=== PATIENT | female | born 1955 | race Caucasian/White ===

== ENCOUNTER → 2016-02-22 | Day surgery (SDC) | payer BC ==
[2016-02-05 08:34] VITALS: BMI 28.0
[~2016-02-22] VITALS: Ht 165.1 cm; Wt 77.3 kg
[~2016-02-22] MED LIST: ATEN-173 PO; BUPRTAB51 PO; ERGO500037 PO; FLNIN NAE; FLUO20CA37 PO; HYDR25SU20 PR; LIDOCAINE HCL 2% 2 ML VIAL (20MG/ML) ONE; MULT-506 PO; OMEG10007 PO; PANT40TA PO; POLY335019 PO; PRMVC TOP; PROPOFOL IV EMULSION 10 MG/ML 20 ML VIAL IV ONE; SIMV20TA5 PO
[2016-02-22 14:15] VITALS: Ht 165.1 cm; Wt 77.3 kg
--- NOTE | 2016-02-22 14:15 | Endo History and Physical ---
History & Physical Date of Service: Feb 22, 2016. Chief Complaint: Screening Referring Physician: DR. Cross History of Present Illness For colonoscopy Past Medical History Reflux, High Cholesterol, Hypertension, Kidney Disease Past Surgical History Hx Cardiac Surgery: No Hx Internal Defibrillator: No Hx Pacemaker: No Hx Abdominal Surgery: Yes (SHIMON, RECTOCELE REPAIR) Hx of Implantable Prosthesis: No Hx Post-Op Nausea and Vomiting: Yes Hx Cancer Surgery: No Hx Thoracic Surgery: No Hx Orthopedic: Yes (RT THUMB TENDON REPAIR) Hx Urinary Tract Surgery: No Family History None Social History Smoking Status: Former Smoker Hx Substance Use: No Hx Alcohol Use: No Allergies Coded Allergies: Sulfa Drugs (Verified Allergy, Mild, RASH, 02/05/16) Current Medications Reported Home Medications Medications Dose Route/Sig Max Daily Dose Days Date Category Dose Instructions Premarin (Estrogens, Conjugated) 14 Appln/30 Gm Cr 1 Appl TOP UD PRN 02/05/16 Reported Protonix (Pantoprazole Sodium) 40 Mg Tab 40 Mg PO DAILY PRN 02/05/16 Reported Vitamin D 10951 Unit (Ergocalciferol) 50,000 Unit Cap 50,000 Unit PO MONTHLY 02/05/16 Reported Anusol-Hc (Hydrocortisone Acetate (Rectal) 25 Mg Sup 25 Mg CA BID PRN 02/05/16 Reported Miralax (Polyethylene Glycol 3350) 1 Pow Pow 17 Gm PO QPM 02/05/16 Reported Multivitamin (Multivitamins) Tab 1 Tab PO QAM 07/14/14 Reported [place]-3 (Fish Oil) 1 Ea Cap 1,000 Mg PO QAM 05/12/13 Reported Tenormin (Atenolol) 25 Mg Tab 25 Mg PO QAM 05/12/13 Reported Zocor (Simvastatin) 20 Mg Tab 20 Mg PO QPM 05/12/13 Reported Wellbutrin-Xl (Bupropion HCl) 300 Mg Tabcr 300 Mg PO QAM 04/12/09 Reported Prozac (Fluoxetine Hcl) 20 Mg Cap 20 Mg PO QAM 04/12/09 Reported TO TAKE W/ 40MG TABLET TO HAVE FULL DOSE OF 60MG Flonase Nasal [place] * (Fluticasone Propionate) Inha 2 Sprays ROCHELLE DAILY PRN 01/03/09 Reported Vital Signs Weight (Kilograms): 77.27 Height (Feet): 5 Height (Inches): 5 Physical Exam General Appearance: + obese Respiratory/Chest: Respiratory effort: no dyspnea Cardiovascular: Heart Auscultation: RRR Abdomen: Inspection & Palpation: soft Assessment and Plan For screening colonoscopy
--- NOTE | 2016-02-22 14:47 | Discharge Instructions ---
Endoscopy Patient Instructions Date / Procedure(s) Performed Feb 22, 2016. Colonoscopy Allergy Information Coded Allergies: Sulfa Drugs (Verified Allergy, Mild, RASH, 02/05/16) Discharge Date / Findings Feb 22, 2016. Hemorrhoids Medication Instructions Restart Stopped Medication(s): resume meds Reported Home Medications Medications Dose Route/Sig Max Daily Dose Days Date Category Dose Instructions Premarin (Estrogens, Conjugated) 14 Appln/30 Gm Cr 1 Appl TOP UD PRN 02/05/16 Reported Protonix (Pantoprazole Sodium) 40 Mg Tab 40 Mg PO DAILY PRN 02/05/16 Reported Vitamin D 14551 Unit (Ergocalciferol) 50,000 Unit Cap 50,000 Unit PO MONTHLY 02/05/16 Reported Anusol-Hc (Hydrocortisone Acetate (Rectal) 25 Mg Sup 25 Mg NE BID PRN 02/05/16 Reported Miralax (Polyethylene Glycol 3350) 1 Pow Pow 17 Gm PO QPM 02/05/16 Reported Multivitamin (Multivitamins) Tab 1 Tab PO QAM 07/14/14 Reported [place]-3 (Fish Oil) 1 Ea Cap 1,000 Mg PO QAM 05/12/13 Reported Tenormin (Atenolol) 25 Mg Tab 25 Mg PO QAM 05/12/13 Reported Zocor (Simvastatin) 20 Mg Tab 20 Mg PO QPM 05/12/13 Reported Wellbutrin-Xl (Bupropion HCl) 300 Mg Tabcr 300 Mg PO QAM 04/12/09 Reported Prozac (Fluoxetine Hcl) 20 Mg Cap 20 Mg PO QAM 04/12/09 Reported TO TAKE W/ 40MG TABLET TO HAVE FULL DOSE OF 60MG Flonase Nasal [place] * (Fluticasone Propionate) Inha 2 Sprays ROCHELLE DAILY PRN 01/03/09 Reported Provider Instructions Activity Restrictions - No exercising or heavy lifting for 24 hours. - Do not drink alcohol the day of the procedure. - Do not drive a car or operate machinery until the day after the procedure. - Do not make any important decisions or sign important papers in 24 hours after the procedure. Following Day: - Return to full activity which may include returning to work/school. Diet Start your diet with liquids and light foods (jello, soup, juice, toast). Then eat your usual diet if not nauseated. Treatment For Common After Affects For mild abdominal pain, bloating, or excessive gas: - Rest - Eat lightly - Lie on right side Follow-Up Information Follow-up with DR VAZ as scheduled Anesthesia Information What You Should Know You have had a procedure that required some medicine to reduce anxiety and discomfort. This treatment is called moderate sedation. After receiving the treatment, you may be sleepy, but you will be able to breathe on your own. The effects of the treatment may last for several hours. Follow these instructions along with Activity/Diet recommendations noted above: * Do NOT do anything where dizziness or clumsiness would be dangerous. * Rest quietly at home today, then you can be up and about tomorrow. * Have a responsible person stay with you the rest of today. * You may have had an I.V. today. If so, you may take the dressing off later today. Recommendations Call your doctor if: * Trouble breathing * Continuous vomiting for more than 24 hours * Temperature above 101 degrees * Severe abdominal pain or bloating * Pain not relieved by pain medicine ordered * There is increased drainage or redness from any incision * A large amount of rectal bleeding greater than 2-3 tablespoons. (If you had a polyp/s removed or have hemorrhoids, a small amount of blood - from the rectum is to be expected.) * You have any unanswered questions or concerns. IN THE EVENT OF A SERIOUS EMERGENCY, GO TO THE NEAREST EMERGENCY ROOM Your discharge instructions were prepared by provider Justin Ling. Patient Instructions Signature Page June Huff Patient (or Guardian) Signature/Date: I have read and understand the instructions given to me by my caregivers. Caregiver/RN/Doctor Signature/Date: The above-named patient and/or guardian has received patient instructions on this date. + Original Patient Signature Page (only) stays with chart. Please make copy for patient.
--- NOTE | 2016-02-22 14:51 | GI REPORT ---
Procedure Date: 02/22/2016 2:28 PM Procedure: Colonoscopy Indications: Screening for colorectal malignant neoplasm Medicines: Propofol total dose 280 mg IV, Lidocaine 40 mg IV Complications: No immediate complications. Estimated Blood Loss: Estimated blood loss: none. Procedure: Pre-Anesthesia Assessment: - Prior to the procedure, a History and Physical was performed, and patient medications, allergies and sensitivities were reviewed. The patient's tolerance of previous anesthesia was reviewed. - The risks and benefits of the procedure and the sedation options and risks were discussed with the patient. All questions were answered and informed consent was obtained. After I obtained informed consent, the scope was passed under direct vision. Throughout the procedure, the patient's blood pressure, pulse, and oxygen saturations were monitored continuously. The scope was introduced through the anus and advanced to the cecum, identified by appendiceal orifice and ileocecal valve. The colonoscopy was somewhat difficult due to significant looping. Successful completion of the procedure was aided by applying abdominal pressure. The patient tolerated the procedure well. The quality of the bowel preparation was excellent. Findings: Non-bleeding internal hemorrhoids were found during endoscopy. The hemorrhoids were mild. Impression: - Non-bleeding internal hemorrhoids. - No specimens collected. Recommendation: - Discharge patient to home (ambulatory). - Continue present medications. - Repeat colonoscopy in 10 years for screening purposes. - Return to primary care physician PRN. Justin Ling M.D. Justin Ling MD 02/22/2016 2:50:06 PM This report has been signed electronically. Note Initiated On: 02/22/2016 2:28 PM
[2016-02-22 15:19] VITALS: BP 132/72; PULSE 78; O2SAT 99
--- NOTE | 2016-02-22 15:21 | Anesthesiology Progress Note ---
Anesthesia Post Op Note Date & Time Feb 22, 2016 at 15:20 Vital Signs Pain Intensity: 0 Vital Signs Past 12 Hours Date Time Temp Pulse Resp B/P Pulse Ox O2 Delivery O2 Flow Rate FiO2 02/22/16 15:05 76 18 128/72 96 Room Air 02/22/16 14:49 84 18 111/62 96 Room Air 02/22/16 14:13 36.6 83 18 133/55 96 Room Air Notes Mental Status: alert / awake / arousable, participated in evaluation Pt Amnestic to Procedure: Yes Nausea / Vomiting: adequately controlled Pain: adequately controlled Airway Patency, RR, SpO2: stable & adequate BP & HR: stable & adequate Hydration State: stable & adequate Anesthetic Complications: no major complications apparent
== END | disposition home or self-care (01) ==
LOC: C.GI 13:54
PROVIDERS: ATTEND Internal Medicine Gastroenterology
DX: Z12.11 Encounter for screening for malignant neoplasm of colon (principal); K64.8 Other hemorrhoids; K21.9 Gastro-esophageal reflux disease without esophagitis; E78.00 Pure hypercholesterolemia, unspecified; I10 Essential (primary) hypertension; Z98.890 Other specified postprocedural states; Z87.891 Personal history of nicotine dependence; Z88.2 Allergy status to sulfonamides

== ENCOUNTER → 2016-04-14 | Outpatient (CLI) | payer BC ==
[~2016-04-14] MED LIST changes: -LIDOCAINE HCL 2% 2 ML VIAL (20MG/ML) ONE; -PROPOFOL IV EMULSION 10 MG/ML 20 ML VIAL IV ONE
== END | disposition home or self-care (01) ==
LOC: C.PAPS 11:44
PROVIDERS: ATTEND Obstetrics & Gynecology
DX: Z01.419 Encounter for gynecological examination (general) (routine) without abnormal findings (principal)

== ENCOUNTER → 2016-04-18 | Outpatient (CLI) | payer BC ==
--- NOTE | 2016-04-21 13:46 | MAMMOGRAPHY REPORT ---
BILATERAL DIGITAL SCREENING MAMMOGRAM TOMOSYNTHESIS WITH CAD: 04/18/2016 CLINICAL HISTORY: Routine screening. Patient has no complaints. TECHNIQUE: Breast tomosynthesis in addition to standard 2D mammography was performed. Current study was also evaluated with a Computer Aided Detection (CAD) system. COMPARISON: Comparison is made to exams dated: 04/16/2015 mammogram, 04/11/2013 mammogram, 04/14/2014 mammogram, 04/01/2012 mammogram, 03/31/2011 mammogram, and 04/01/2010 mammogram - [facility]. BREAST COMPOSITION: The tissue of both breasts is heterogeneously dense, which may obscure small ma sses. FINDINGS: No suspicious masses, calcifications, or areas of architectural distortion are noted in e ither breast. There has been no significant interval change compared to prior exams. Scattered bilat eral benign-appearing calcifications are not significantly changed. IMPRESSION: ACR BI-RADS CATEGORY 2: BENIGN There is no mammographic evidence of malignancy. A 1 year screening mammogram is recommended. The p atient will receive written notification of the results. Approximately 10% of breast cancers are not detected with mammography. A negative mammographic repor t should not delay biopsy if a clinically suggestive mass is present. Pura Han M.D. ah/:04/18/2016 14:53:37 Tool Salvage Worker: Leesa MONTANO)(M), [facility] letter sent: Normal 1/2 BI-RADS Code: ACR BI-RADS Category 2: Benign
== END | disposition home or self-care (01) ==
LOC: C.MAMM 08:58
PROVIDERS: ATTEND Obstetrics & Gynecology
DX: Z12.31 Encounter for screening mammogram for malignant neoplasm of breast (principal)

== ENCOUNTER → 2016-05-12 | Outpatient (CLI) | payer BC ==
[2016-05-12 11:09] LABS: HEMATOCRIT 40.8 % (37-47); MEAN CELL VOLUME 85.9 fL (80-100); MEAN CORPUSCULAR HEMOGLOBIN 30.5 pg (25-34); MEAN CORPUSCULAR HGB CONC 35.5 g/dl (32-36); MEAN PLATELET VOLUME 9.3 fL (7.4-10.4); PLATELET COUNT 293 K/uL (130-400); RED BLOOD COUNT 4.75 M/uL (4.2-5.4); WHITE BLOOD COUNT 4.96 K/uL (4.8-10.8)
[2016-05-12 11:14] LABS: URINE APPEARANCE CLEAR (CLEAR); URINE BILIRUBIN NEG (NEG); URINE COLOR YELLOW; URINE EPITHELIAL CELL AUTO 20-30 /lpf (0-5); URINE NITRITE NEG (NEG); URINE SPECIFIC GRAVITY 1.019 (1.000-1.030); UROBILINOGEN NEG (NEG)
[2016-05-12 11:19] LABS: MANUAL MICROSCOPIC REQUIRED? NO; REVIEW REQ? NO
[2016-05-12 11:27] LABS: BLOOD UREA NITROGEN 20 mg/dl (7-18); GLUCOSE 98 mg/dl (70-99)
[2016-05-12 11:28] LABS: ALT/SGPT 30 U/L (12-78); BUN/CREATININE RATIO 15.7 (10-20); CALCIUM 9.1 mg/dl (8.5-10.1); CARBON DIOXIDE 26 mmol/L (21-32); CHLORIDE 108 mmol/L (98-107); POTASSIUM 4.2 mmol/L (3.5-5.1); SODIUM 142 mmol/L (136-145)
[2016-05-12 11:31] LABS: ALB/GLOB RATIO 1.2 (0.9-2); ALKALINE PHOSPHATASE 76 U/L (45-117); AST/SGOT 16 U/L (15-37)
[2016-05-12 11:45] LABS: URINE PROTIEN/CREAT RATIO 0.1 (0-0.2); URINE TOTAL PROTEIN 9.8 mg/dl (0-11.9)
== END | disposition home or self-care (01) ==
LOC: C.LAB1850 09:57
PROVIDERS: ATTEND Internal Medicine Nephrology
DX: I12.9 Hypertensive chronic kidney disease with stage 1 through stage 4 chronic kidney disease, or unspecified chronic kidney disease (principal); I71.2 Thoracic aortic aneurysm, without rupture; D30.00 Benign neoplasm of unspecified kidney; N18.2 Chronic kidney disease, stage 2 (mild); E55.9 Vitamin D deficiency, unspecified

== ENCOUNTER → 2017-04-21 | Outpatient (CLI) | payer OTHER ==
[~2017-04-21] MED LIST changes: +FLUO40CA8 PO; +PRT40 PO
--- NOTE | 2017-04-21 15:15 | MAMMOGRAPHY REPORT ---
BILATERAL DIGITAL SCREENING MAMMOGRAM TOMOSYNTHESIS WITH CAD: 04/21/2017 CLINICAL HISTORY: Routine screening. Patient has no complaints. TECHNIQUE: Breast tomosynthesis in addition to standard 2D mammography was performed. Current study was also evaluated with a Computer Aided Detection (CAD) system. COMPARISON: Comparison is made to exams dated: 04/18/2016 mammogram, 04/16/2015 mammogram, 04/14/2014 ma mmogram, 04/11/2013 mammogram, 04/01/2012 mammogram, and 03/31/2011 mammogram - [facility]. BREAST COMPOSITION: The tissue of both breasts is heterogeneously dense, which may obscure small mas ses. FINDINGS: The parenchymal pattern is unchanged. No developing mass, architectural distortion or clus ter of suspicious microcalcifications is seen in either breast. IMPRESSION: ACR BI-RADS CATEGORY 2: BENIGN There is no mammographic evidence of malignancy. A 1 year screening mammogram is recommended. The pa tient will receive written notification of the results. Approximately 10% of breast cancers are not detected with mammography. A negative mammographic report should not delay biopsy if a clinically suggestive mass is present. Jill Brewer M.D. ay/:04/21/2017 14:03:40 Double End Sewer: Heather HERNANDEZ(Wily)(Toribio), [facility] letter sent: Normal 1/2 BI-RADS Code: ACR BI-RADS Category 2: Benign
== END | disposition home or self-care (01) ==
LOC: C.MAMM 09:17
PROVIDERS: ATTEND Family Medicine
DX: Z12.31 Encounter for screening mammogram for malignant neoplasm of breast (principal)

== ENCOUNTER 2017-04-25 05:17 | Inpatient (IN) | payer OTHER ==
[~2017-04-25] VITALS: Ht 165.1 cm; Wt 83.3 kg
[~2017-04-25 05:17] MED LIST changes: -FLUO40CA8 PO; -PRT40 PO
[2017-04-25] MEDS ORDERED: SODIUM CHLORIDE 0.9% 1000ML 1,000 ML IV STA (05:31)
[2017-04-25] MEDS ORDERED: HYDROmorphone INJ 1 MG/ML SYR IV STA (05:31)
[2017-04-25] MEDS ORDERED: ONDANSETRON INJ 2 MG/ML 2 ML VIAL IV STA (05:31)
--- NOTE | 2017-04-25 05:35 | EMERGENCY ROOM VISIT NOTE ---
History First contact with patient: 05:24 Chief Complaint: ABDOMINAL PAIN Stated Complaint: PAIN AND BLOATING Nursing Triage Summary: c/o abd pain since 0300. states hx of pancreatitis in the past. 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 History of Present Illness The patient is a 62 year old female who presents to the Emergency Room for evaluation of epigastric pain. Sudden onset awoke her from sleep around 3 am. Denies associated symptoms. Movement makes worse. Staying still makes better. No medications taken prior to arrival. Similar to previous episodes of pancreatitis. No trauma nor falls. History of GB out. Admits 1 sip of wine with dinner no excessive alcohol intake. No syncope, cp, rashes, fevers, back pain, nausea, vomiting, shob, leg pain, urinary symptoms. Notes constipation for a few days which is not uncommon for her. Review of Systems See HPI for pertinent positives & negatives. A total of 10 systems reviewed and were otherwise negative. Past Medical/Surgical History Medical Problems: (1) Pancreatitis Social History Smoking Status: Never Smoker Drug Use: none Marital Status: Housing Status: lives with family Current/Historical Medications Scheduled Atenolol (Tenormin), 25 MG PO QAM Bupropion (Wellbutrin-Xl), 300 MG PO QAM Ergocalciferol (Vitamin D 40447 Unit), 50,000 UNIT PO MONTHLY Fish Oil ([place]-3), 1,000 MG PO QAM Fluoxetine (Prozac), 40 MG PO DAILY Fluoxetine Hcl (Prozac), 20 MG PO QAM Multivitamin (Multivitamin), 1 TAB PO QAM Simvastatin (Zocor), 20 MG PO QPM Physical Exam Vital Signs Date Time Temp Pulse Resp B/P (MAP) Pulse Ox O2 Delivery O2 Flow Rate FiO2 04/25/17 07:49 76 18 109/52 94 Room Air 04/25/17 06:26 98 Nasal Cannula 2.0 04/25/17 06:09 76 18 125/55 93 Room Air 04/25/17 05:20 36.8 78 18 123/80 98 Room Air Physical Exam GENERAL: Patient is uncomfortable appearing and in moderate distress. EYES: No scleral icterus, unremarkable pupils. ENT: Mucous membranes moist, no nasal congestion. NECK: No masses appreciated, no meningismus, trachea is midline. RESPIRATORY: No dyspnea. Clear to auscultation and equal bilaterally. No wheeze , no rhonchi. CARDIOVASCULAR: Regular rate and rhythm. No murmurs, rubs, gallops appreciated. GASTROINTESTINAL: Severe TTP over epigastrium, otherwise abdomen soft, nontender , no peritonitis. Bowel sounds positive. No masses appreciated. BACK: No midline tenderness, no CVA tenderness EXTREMITIES: Normal motion all extremities, no cyanosis, no edema. NEUROLOGIC: Alert and oriented, no acute motor or sensory deficits, no focal weakness, cranial nerves grossly intact. SKIN: No rash, no jaundice, no diaphoresis. Medical Decision & Procedures ER Provider Diagnostic Interpretation: Radiologist Read: Images and Reads Reviewed by Me: CT ABDO/PELV w IV Con: IMPRESSION: 1. Findings compatible with acute uncomplicated pancreatitis. No peripancreatic fluid collections or evidence of pancreatic necrosis. 2. Mild wall thickening of the fluid-filled duodenum is likely reactive. No bowel obstruction. 3. Unchanged hypervascular hepatic lesions. 4. Stable appearance of the heterogeneously enhancing mass of the inferior pole right kidney, 2.2 cm. 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 5. Prior cholecystectomy. Electronically signed by: Sreekanth Kelly M.D. Laboratory Results 04/25/17 05:40 Red Blood Count 4.86, Mean Corpuscular Volume 88.1, Mean Corpuscular Hemoglobin 31.3, Mean Corpuscular Hemoglobin Concent 35.5, Mean Platelet Volume 9.1, Neutrophils (%) (Auto) 62.5, Lymphocytes (%) (Auto) 29.6, Monocytes (%) (Auto) 5.8, Eosinophils (%) (Auto) 1.5, Basophils (%) (Auto) 0.3, Neutrophils # (Auto) 6.12, Lymphocytes # (Auto) 2.90, Monocytes # (Auto) 0.57, Eosinophils # (Auto) 0.15, Basophils # (Auto) 0.03 04/25/17 05:40 Test 04/25/17 05:40 04/25/17 05:46 White Blood Count 9.80 K/uL (4.8-10.8) Red Blood Count 4.86 M/uL (4.2-5.4) Hemoglobin 15.2 g/dL (12.0-16.0) Hematocrit 42.8 % (37-47) Mean Corpuscular Volume 88.1 fL (80-100) Mean Corpuscular Hemoglobin 31.3 pg (25-34) Mean Corpuscular Hemoglobin Concent 35.5 g/dl (32-36) Platelet Count 276 K/uL (130-400) Mean Platelet Volume 9.1 fL (7.4-10.4) Neutrophils (%) (Auto) 62.5 % Lymphocytes (%) (Auto) 29.6 % Monocytes (%) (Auto) 5.8 % Eosinophils (%) (Auto) 1.5 % Basophils (%) (Auto) 0.3 % Neutrophils # (Auto) 6.12 K/uL (1.4-6.5) Lymphocytes # (Auto) 2.90 K/uL (1.2-3.4) Monocytes # (Auto) 0.57 K/uL (0.11-0.59) Eosinophils # (Auto) 0.15 K/uL (0-0.5) Basophils # (Auto) 0.03 K/uL (0-0.2) RDW Standard Deviation 41.0 fL (36.4-46.3) RDW Coefficient of Variation 12.9 % (11.5-14.5) Immature Granulocyte % (Auto) 0.3 % Immature Granulocyte # (Auto) 0.03 K/uL (0.00-0.02) Est Creatinine Clear Calc Drug Dose 42.9 ml/min Estimated GFR () 44.6 Estimated GFR (Non- 38.5 BUN/Creatinine Ratio 16.8 (10-20) Calcium Level 9.1 mg/dl (8.5-10.1) Total Bilirubin 0.5 mg/dl (0.2-1) Direct Bilirubin 0.1 mg/dl (0-0.2) Aspartate Amino Transf (AST/SGOT) 21 U/L (15-37) Alanine Aminotransferase (ALT/SGPT) 43 U/L (12-78) Alkaline Phosphatase 71 U/L (45-117) Total Protein 7.5 gm/dl (6.4-8.2) Albumin 3.9 gm/dl (3.4-5.0) Lipase 70275 U/L (73-393) Bedside Hemoglobin 14.6 g/dl (12.0-16.0) Bedside Hematocrit 43 % (37-47) Bedside Sodium 143 mEq/L (135-144) Bedside Potassium 3.9 mEq/L (3.3-5.0) Bedside Chloride 107 mEq/L (101-112) Bedside Total CO2 22 mEq/l (24-31) Anion Gap 19.0 mmol/L (16-25) Bedside Blood Urea Nitrogen 25 mg/dl (7-18) Bedside Creatinine 1.4 mg/dl (0.6-1.3) Bedside Glucose (other) 112 mg/dl (70-99) Bedside Ionized Calcium (Bella) 1.16 mmol/l (1.12-1.32) Medications Administered Medications (Trade) Dose Ordered Sig/Marquis Route Start Time Stop Time Status Last Admin Dose Admin Hydromorphone HCl (Dilaudid Inj) 1 mg NOW STAT IV 04/25/17 05:31 04/25/17 05:33 DC 04/25/17 05:40 1 MG Ondansetron HCl (Zofran Inj) 4 mg NOW STAT IV 04/25/17 05:31 04/25/17 05:33 DC 04/25/17 05:40 4 MG Sodium Chloride 1,000 ml @ 999 mls/hr Q1H1M STAT IV 04/25/17 05:31 04/25/17 06:31 DC 04/25/17 05:40 999 MLS/HR ED Course 0524: The patient was evaluated in room A9. A complete history and physical exam was performed. 0645: Dr. Falcon is aware of the patient and will take her on. Medical Decision Differential: Pancreatitis, Hepatic Disfunction, Gastritis/PUD, ACS, Aortic Pathology, amongst other pathologies entertained. 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 Not septic and not consistent with ACS. Given amount of pain and TTP felt emergent imaging warranted which reveals pancreatitis without complications. Vitals stable, WBC and HGB look OK. Feeling much improved with IV narcotics. Lipase returns severely elevated as expected. Will need to come in for further work-up and treatment. No evidence she requires acute surgical consultation nor ICU care at this time. Patient and comfortable with this plan. Medication Reconcilliation Current Medication List: was personally reviewed by me Blood Pressure Screening Patient's blood pressure: Normal blood pressure Impression Primary Impression: Acute pancreatitis Departure Information Referrals Sanchez Cross M.D. (PCP) Patient Instructions My [facility] Problem Qualifiers Primary Impression: Acute pancreatitis
[2017-04-25 05:49] LABS: BASO % 0.3 %; BASO ABS # 0.03 K/uL (0-0.2); EOS % 1.5 %; EOS ABS # 0.15 K/uL (0-0.5); HEMATOCRIT 42.8 % (37-47); HEMOGLOBIN 15.2 g/dL (12.0-16.0); IG# 0.03 K/uL (0.00-0.02); LYMPH % 29.6 %; MEAN CELL VOLUME 88.1 fL (80-100); MEAN CORPUSCULAR HEMOGLOBIN 31.3 pg (25-34); MEAN CORPUSCULAR HGB CONC 35.5 g/dl (32-36); MEAN PLATELET VOLUME 9.1 fL (7.4-10.4); MONO % 5.8 %; MONO ABS # 0.57 K/uL (0.11-0.59); NEUT % 62.5 %; NEUT ABS # 6.12 K/uL (1.4-6.5); PLATELET COUNT 276 K/uL (130-400); RED CELL DISTRIBUTION WIDTH CV 12.9 % (11.5-14.5)
[2017-04-25 06:00] LABS: ISTAT CREATININE 1.4 mg/dl (0.6-1.3); ISTAT IONIZED CALCIUM 1.16 mmol/l (1.12-1.32); ISTAT POTASSIUM 3.9 mEq/L (3.3-5.0)
[2017-04-25] MEDS ORDERED: OPTIRAY 320 IV PRN (06:00)
[2017-04-25 06:04] LABS: ALBUMIN 3.9 gm/dl (3.4-5.0); CALCIUM 9.1 mg/dl (8.5-10.1); CREATININE 1.45 mg/dl (0.60-1.20); POTASSIUM 3.9 mmol/L (3.5-5.1)
[2017-04-25 06:07] LABS: TOTAL PROTEIN 7.5 gm/dl (6.4-8.2)
[2017-04-25] MEDS ORDERED: FLUO40CA8 PO (06:42)
[2017-04-25] MEDS ORDERED: ONDANSETRON INJ 2 MG/ML 2 ML VIAL IV PRN (08:00)
[2017-04-25] MEDS ORDERED: HydrALAZINE HCL 20 MG/ML VIAL IV. PRN (08:15)
[2017-04-25] MEDS ORDERED: HYDROmorphone INJ 1 MG/ML SYR IV PRN (08:15)
--- NOTE | 2017-04-25 08:18 | History and Physical ---
History & Physical Date & Time of Service: Apr 25, 2017 at 08:15 Chief Complaint: Pain And Bloating Primary Care Physician: Sanchez Cross M.D. History of Present Illness Source: patient, clinic records This is a 62 yo f that presents to us with acute abdominal pain which woke he up out of bed at approx 0300. She states that she has a history of recurrent pancreatitis which started approx 6 years ago. She was found to have biliary sludge during that admission and her gallbladder removed. Prior to this episode she had one additional episode of pancreatitis. Her triglycerides and calcium were WNL. She drinks alcohol rarely and has a remote history of smoking. She states that she had her dinner and had a sip of her husbands wine the evening prior and was symptom free until 0300. She started with severe 10/10 epigastric pain and presented to the ED as this was very similar to her other pancreatitis episodes. She states it is a nonradiating dull to sharp pain. She has no N&V, jaundice, change in bowel habits but has absolutely no appetite. Past Medical/Surgical History Pancreatitis Cholecystectomy CKD III Depression HTN HLD Ascending Aorta aneurysm; stable Family History Patient reports no known family medical history. Social History Smoking Status: Former Smoker (quit 35 years ago) Smokeless Tobacco Use: No Alcohol Use: rare Drug Use: none Marital Status: Housing status: lives with family Occupational Status: employed Immunizations History of Influenza Vaccine: Unknown History of Tetanus Vaccine?: Unknown History of Pneumococcal: Unknown History of Hepatitis B Vaccine: Unknown Allergies Coded Allergies: Sulfa Drugs (Verified Allergy, Mild, RASH, 04/25/17) Home Medications Scheduled Atenolol (Tenormin), 25 MG PO QAM Bupropion (Wellbutrin-Xl), 300 MG PO QAM Ergocalciferol (Vitamin D 76927 Unit), 50,000 UNIT PO MONTHLY Fish Oil ([place]-3), 1,000 MG PO QAM Fluoxetine (Prozac), 40 MG PO DAILY Fluoxetine Hcl (Prozac), 20 MG PO QAM Multivitamin (Multivitamin), 1 TAB PO QAM Simvastatin (Zocor), 20 MG PO QPM Review of Systems Constitutional: No fever, No chills, No sweats Eyes: No worsening of vision ENT: No hearing loss Respiratory: No cough, No sputum, No wheezing, No shortness of breath, No dyspnea on exertion, No dyspnea at rest Cardiovascular: No chest pain Abdomen: + pain, No nausea, No vomiting, No diarrhea, No constipation, No GI bleeding Musculoskeletal: No joint pain, No muscle pain Genitourinary - Female: No dysuria, No urinary incontinence, No hematuria Neurologic: No weakness, No numbness/tingling, No balance problems Psychiatric: No depression symptoms Endocrine: No fatigue Hematologic / Lymphatic: No abnormal bleeding/bruising Integumentary: No rash Physical Exam Vital Signs Date Time Temp Pulse Resp B/P (MAP) Pulse Ox O2 Delivery O2 Flow Rate FiO2 04/25/17 07:49 76 18 109/52 94 Room Air 04/25/17 06:26 98 Nasal Cannula 2.0 04/25/17 06:09 76 18 125/55 93 Room Air 04/25/17 05:20 36.8 78 18 123/80 98 Room Air General Appearance: no apparent distress Head: normocephalic, atraumatic Eyes: normal inspection ENT: normal ENT inspection Neck: supple Respiratory/Chest: normal breath sounds, no respiratory distress, no accessory muscle use Cardiovascular: regular rate, rhythm, no murmur, normal peripheral pulses Abdomen/GI: normal bowel sounds, no organomegaly, + tenderness (epigastric region), + pertinent finding (negative vasquez, obturator, rovsig, no rebound tenderness or peritoneal signs) Back: normal inspection, no CVA tenderness Extremities/Musculoskelatal: no calf tenderness, no pedal edema, normal range of motion Neurologic/Psych: alert, normal mood/affect, oriented x 3 Skin: normal color, warm/dry, no rash Lymphatic: no adenopathy Diagnostics Laboratory Results Results Past 24 Hours Test 04/25/17 05:40 04/25/17 05:46 Range/Units White Blood Count 9.80 4.8-10.8 K/uL Red Blood Count 4.86 4.2-5.4 M/uL Hemoglobin 15.2 12.0-16.0 g/dL Hematocrit 42.8 37-47 % Mean Corpuscular Volume 88.1 80-100 fL Mean Corpuscular Hemoglobin 31.3 25-34 pg Mean Corpuscular Hemoglobin Concent 35.5 32-36 g/dl Platelet Count 276 130-400 K/uL Mean Platelet Volume 9.1 7.4-10.4 fL Neutrophils (%) (Auto) 62.5 % Lymphocytes (%) (Auto) 29.6 % Monocytes (%) (Auto) 5.8 % Eosinophils (%) (Auto) 1.5 % Basophils (%) (Auto) 0.3 % Neutrophils # (Auto) 6.12 1.4-6.5 K/uL Lymphocytes # (Auto) 2.90 1.2-3.4 K/uL Monocytes # (Auto) 0.57 0.11-0.59 K/uL Eosinophils # (Auto) 0.15 0-0.5 K/uL Basophils # (Auto) 0.03 0-0.2 K/uL RDW Standard Deviation 41.0 36.4-46.3 fL RDW Coefficient of Variation 12.9 11.5-14.5 % Immature Granulocyte % (Auto) 0.3 % Immature Granulocyte # (Auto) 0.03 0.00-0.02 K/uL Sodium Level 140 136-145 mmol/L Potassium Level 3.9 3.5-5.1 mmol/L Chloride Level 109 98-107 mmol/L Carbon Dioxide Level 22 21-32 mmol/L Anion Gap 9.0 19.0 16-25 mmol/L Blood Urea Nitrogen 24 7-18 mg/dl Creatinine 1.45 0.60-1.20 mg/dl Est Creatinine Clear Calc Drug Dose 42.9 ml/min Estimated GFR () 44.6 Estimated GFR (Non- 38.5 BUN/Creatinine Ratio 16.8 10-20 Random Glucose 110 70-99 mg/dl Calcium Level 9.1 8.5-10.1 mg/dl Total Bilirubin 0.5 0.2-1 mg/dl Direct Bilirubin 0.1 0-0.2 mg/dl Aspartate Amino Transf (AST/SGOT) 21 15-37 U/L Alanine Aminotransferase (ALT/SGPT) 43 12-78 U/L Alkaline Phosphatase 71 45-117 U/L Total Protein 7.5 6.4-8.2 gm/dl Albumin 3.9 3.4-5.0 gm/dl Lipase 35068 73-393 U/L Bedside Hemoglobin 14.6 12.0-16.0 g/dl Bedside Hematocrit 43 37-47 % Bedside Sodium 143 135-144 mEq/L Bedside Potassium 3.9 3.3-5.0 mEq/L Bedside Chloride 107 101-112 mEq/L Bedside Total CO2 22 24-31 mEq/l Bedside Blood Urea Nitrogen 25 7-18 mg/dl Bedside Creatinine 1.4 0.6-1.3 mg/dl Bedside Glucose (other) 112 70-99 mg/dl Bedside Ionized Calcium (Bella) 1.16 1.12-1.32 mmol/l Diagnostic Radiology ABDOMEN AND PELVIS CT WITH IV CONTRAST CT DOSE: 660.93 mGy.cm HISTORY: Acute epigastric abdominal pain sudden onset epigastric pain TECHNIQUE: Multiaxial CT images of the abdomen and pelvis were performed following the use of intravenous contrast. A dose lowering technique was utilized adhering to the principles of ALARA. COMPARISON STUDY: CTA 09/24/2015. FINDINGS: Mild dependent subsegmental bibasilar atelectasis. 5 mm solid nodule of the inferior segment lingula appears unchanged. There is no pneumatosis or pneumoperitoneum identified. Imaged inferior cardiac chambers are unremarkable. Prior cholecystectomy. 1.1 cm low attenuating lesion of the subserosal posterior right hepatic lobe is unchanged as are the hyperattenuating lesions of the anterior right hepatic lobe measuring up to 1.7 cm suggesting flash filling hemangiomas. No intrahepatic biliary ductal dilation identified. The spleen and adrenal glands are within normal limits. There is mild to moderate interstitial edema of the pancreatic head, uncinate process and neck with mild surrounding edema and free fluid surrounding the pancreatic head and duodenum compatible with acute pancreatitis. No focal peripancreatic fluid collections or pancreatic necrosis. No pancreatic ductal dilatation. Splenic vein appears patent. Heterogeneously enhancing mass of the inferior pole right kidney redemonstrated, 2.2 x 1.4 cm which is unchanged. Macroscopic fat essentially within this lesion is again noted. 4.4 cm cyst of the inferior pole left kidney. No renal calculi or hydronephrosis. Cyst of the superior pole right kidney also noted. Urinary bladder is partially decompressed. Uterus and adnexa are unremarkable. No abdominal aortic aneurysm. No bulky adenopathy. No bowel obstruction identified. Fluid-filled duodenum, likely reactive ileus. Mild wall thickening of the proximal duodenum also noted. The large bowel is within normal limits. No evidence of acute appendicitis. Soft tissues are unremarkable. Bones appear intact. Severe intervertebral disc space narrowing at T9-T10. IMPRESSION: 1. Findings compatible with acute uncomplicated pancreatitis. No peripancreatic fluid collections or evidence of pancreatic necrosis. 2. Mild wall thickening of the fluid-filled duodenum is likely reactive. No bowel obstruction. 3. Unchanged hypervascular hepatic lesions. 4. Stable appearance of the heterogeneously enhancing mass of the inferior pole right kidney, 2.2 cm. 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 5. Prior cholecystectomy. Impression Assessment and Plan This is a 62 yo f with CKD III, depression that is presenting to us with epigastric pain and findings consistent with pancreatitis, her third pancreatitis admission in 6 years Pancreatitis -med surg admission - LR @ 200 cc/h - NPO and when patient has appetite may consider advancing to clears - Consult GI - recheck TG in am - follow Lipase to downtrend and repeat LFT in am - dilaudid for pain control and zofran HTN - Atenolol 25 mg qam to restart tomorrow - in meantime hydralazine 5 mg q6h prn IV for systolic > 180 Depression - continue wellbutrin and prozac vin am CKD III, Angiomyolipoma on right kidney? - Cr is 1.4 today, recheck in am as did receive IV contrast - stable tumor on right kidney, <4 mm and possible angiomyolipoma DVT prophylaxis - Heparin bid FULL CODE Resident Physician Supervision Note: I interviewed and examined the patient. Discussed with Dr. Cleary and agree with findings and plan as documented in the note. Any exceptions or clarifications are listed here: None Patient presents with symptoms pink otitis with a lipase of 38,002 previously also suffers from hypertension depression and dyslipidemia she has had her symptoms fairly controlled with general opiates and we are pending an evaluation by gastroenterology Vital signs are 36 8 pulse 68 respiration 18 BP 125/65 Her abdomen is with quiet bowel sounds soft it is markedly tender in the upper quadrants Pancreatitis in the setting of previous cholecystectomy patient has fairly normal LFTs which bring some concern for pancreatic issue itself however is at risk for recurrent peritonitis having previously had pancreatitis. She will be n.p.o. pain control IV fluids and gastroenterology consultation Documented By: Dominik Melton Resuscitation Status FULL VTE Prophylaxis Will order VTE Prophylaxis: Yes Social Service Consult None Apply Note Total Time: Critical Care 30 - 74 minutes Additional Copies To Sanchez Cross M.D.
--- NOTE | 2017-04-25 08:29 | DIAGNOSTIC IMAGING REPORT ---
ABDOMEN AND PELVIS CT WITH IV CONTRAST CT DOSE: 660.93 mGy.cm HISTORY: Acute epigastric abdominal pain sudden onset epigastric pain TECHNIQUE: Multiaxial CT images of the abdomen and pelvis were performed following the use of intravenous contrast. A dose lowering technique was utilized adhering to the principles of ALARA. COMPARISON STUDY: CTA 09/24/2015. FINDINGS: Mild dependent subsegmental bibasilar atelectasis. 5 mm solid nodule of the inferior segment lingula appears unchanged. There is no pneumatosis or pneumoperitoneum identified. Imaged inferior cardiac chambers are unremarkable. Prior cholecystectomy. 1.1 cm low attenuating lesion of the subserosal posterior right hepatic lobe is unchanged as are the hyperattenuating lesions of the anterior right hepatic lobe measuring up to 1.7 cm suggesting flash filling hemangiomas. No intrahepatic biliary ductal dilation identified. The spleen and adrenal glands are within normal limits. There is mild to moderate interstitial edema of the pancreatic head, uncinate process and neck with mild surrounding edema and free fluid surrounding the pancreatic head and duodenum compatible with acute pancreatitis. No focal peripancreatic fluid collections or pancreatic necrosis. No pancreatic ductal dilatation. Splenic vein appears patent. Heterogeneously enhancing mass of the inferior pole right kidney redemonstrated, 2.2 x 1.4 cm which is unchanged. Macroscopic fat essentially within this lesion is again noted. 4.4 cm cyst of the inferior pole left kidney. No renal calculi or hydronephrosis. Cyst of the superior pole right kidney also noted. Urinary bladder is partially decompressed. Uterus and adnexa are unremarkable. No abdominal aortic aneurysm. No bulky adenopathy. No bowel obstruction identified. Fluid-filled duodenum, likely reactive ileus. Mild wall thickening of the proximal duodenum also noted. The large bowel is within normal limits. No evidence of acute appendicitis. Soft tissues are unremarkable. Bones appear intact. Severe intervertebral disc space narrowing at T9-T10. IMPRESSION: 1. Findings compatible with acute uncomplicated pancreatitis. No peripancreatic fluid collections or evidence of pancreatic necrosis. 2. Mild wall thickening of the fluid-filled duodenum is likely reactive. No bowel obstruction. 3. Unchanged hypervascular hepatic lesions. 4. Stable appearance of the heterogeneously enhancing mass of the inferior pole right kidney, 2.2 cm. 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 5. Prior cholecystectomy. Electronically signed by: Sreekanth Kelly M.D. 04/25/2017 8:28 AM Dictated Date/Time: 04/25/2017 8:18 AM
[2017-04-25 08:30] VITALS: O2SAT 93; Ht 165.1 cm; Wt 83.3 kg
[2017-04-25 08:57] VITALS: BP 105/82; PULSE 76; TEMP 36.8; O2SAT 96
[2017-04-25] MEDS ORDERED: HYDROmorphone INJ 2 MG/ML SYR/VIAL IV PRN (09:30)
[2017-04-25] MEDS: LACTATED RINGER'S 1000ML 1,000 ML IV SCH ×4 (09:37→23:16)
[2017-04-25] MEDS: BuPROPion XL 300 MG TABCR PO SCH (09:49)
[2017-04-25] MEDS: FLUOXETINE HCL 20 MG CAP PO SCH (09:49)
[2017-04-25 10:29] LABS: PTT PATIENT 23.4 SECONDS (21.0-31.0)
--- NOTE | 2017-04-25 10:33 | GASTROINTESTINAL CONSULTATION ---
DATE OF CONSULTATION: 04/25/2017 REASON FOR CONSULTATION: Acute pancreatitis. HISTORY OF PRESENT ILLNESS: The patient is a 62-year-old who presents to the Emergency Room after awakening from sleep at 3:00 a.m. with acute onset epigastric pain. She has had 2 previous episodes of pancreatitis dating back to 2008, both presenting in a similar way. The patient had her gallbladder out about 6 years ago thinking that it may prevent further attacks, but there were no stones found and it did not prevent any further attacks. Her calcium and triglyceride levels in the past have been normal and any offending medications that are potential causes for pancreatitis have been discontinued. The patient consumes virtually no alcohol. During this admission, her liver tests are completely normal. CT scan shows edematous pancreas in the head, neck and body. PAST MEDICAL HISTORY: Remarkable for renal cyst on the left and a mixed density lesion in the right kidney. She had a cholecystectomy. She has depression, has claustrophobia, hyperlipidemia, and hypertension. MEDICATIONS: Tenormin, Wellbutrin, vitamin D, Roulette-3 fish oil, Prozac, multiple vitamin, and Zocor. FAMILY HISTORY: Negative for pancreatitis. SOCIAL HISTORY: The patient is . She does not smoke, drinks alcohol rarely. REVIEW OF SYSTEMS: Positive for an enlarged thyroid which is euthyroid. REVIEW OF SYSTEMS: Otherwise negative. PHYSICAL EXAMINATION: General: The patient appears awake, alert, in no acute distress. VITAL SIGNS: Normal. She is afebrile. HEENT: Benign. ABDOMEN: Shows laparoscopic cholecystectomy scars. Bowel sounds are hypoactive. There is tenderness in the upper abdomen throughout. No mass or rebound. IMPRESSION AND PLAN: The patient has acute onset pancreatitis for the third time over the last 9 years without a specific etiology found. Her liver tests are normal. She does not consume alcohol. Calcium and triglycerides are normal. I suspect that she could potentially have autoimmune pancreatitis or pancreas divisum. Unfortunately, she is extremely claustrophobic and is unwilling to have an MRI of her pancreas. It is possible once the pancreatic edema resolves, in the future, we may be able to do a dedicated CT of the pancreas to look for signs of pancreas divisum. In the meantime, I plan on getting an RACHEL immunoglobulin levels including an IgG 4 level to check for potential autoimmune pancreatitis. We will follow the patient during her hospital stay.
[2017-04-25] MEDS: HEPARIN SOD 5000 UNIT/0.5 ML CARP SQ SCH (15:39)
[2017-04-25] MEDS: HYDROmorphone INJ 0.5 MG/0.5 ML SYR IV PRN ×2 (15:43→19:40)
[2017-04-25 15:50] VITALS: BP 113/67; PULSE 65; TEMP 36.6; O2SAT 92
[2017-04-25 16:00] VITALS: O2SAT 92
[2017-04-25] MEDS: SIMVASTATIN 20 MG TAB PO SCH (21:56)
[2017-04-25 22:14] VITALS: BP 132/75; PULSE 70; TEMP 36.7; O2SAT 92
[2017-04-26] MEDS: HEPARIN SOD 5000 UNIT/0.5 ML CARP SQ SCH ×2 (04:00→15:35)
[2017-04-26] MEDS: LACTATED RINGER'S 1000ML 1,000 ML IV SCH ×4 (04:41→19:17)
[2017-04-26] MEDS: BuPROPion XL 300 MG TABCR PO SCH (07:41)
[2017-04-26] MEDS: FLUOXETINE HCL 20 MG CAP PO SCH (07:41)
[2017-04-26] MEDS ORDERED: FLUOXETINE HCL 20 MG CAP PO SCH (08:00)
[2017-04-26 08:22] VITALS: BP 130/72; PULSE 60; TEMP 36.7; O2SAT 94
[2017-04-26 08:57] LABS: HEMATOCRIT 37.9 % (37-47); HEMOGLOBIN 13.2 g/dL (12.0-16.0); MEAN CELL VOLUME 88.1 fL (80-100); MEAN CORPUSCULAR HEMOGLOBIN 30.7 pg (25-34); MEAN CORPUSCULAR HGB CONC 34.8 g/dl (32-36); PLATELET COUNT 211 K/uL (130-400); RED CELL DISTRIBUTION WIDTH CV 12.7 % (11.5-14.5); RED CELL DISTRIBUTION WIDTH SD 40.7 fL (36.4-46.3); WHITE BLOOD COUNT 8.26 K/uL (4.8-10.8)
[2017-04-26 09:41] LABS: ALBUMIN 3.2 gm/dl (3.4-5.0); CALCIUM 8.3 mg/dl (8.5-10.1); CREATININE 1.05 mg/dl (0.60-1.20); POTASSIUM 4.1 mmol/L (3.5-5.1); TOTAL PROTEIN 6.3 gm/dl (6.4-8.2)
[2017-04-26] MEDS ORDERED: MAGNESIUM HYDROXIDE SUSP 30 ML UDC ONE (09:52)
--- NOTE | 2017-04-26 11:21 | PROGRESS NOTE ---
DATE: 04/26/2017 SUBJECTIVE: The patient is complaining of heartburn today and some constipation. She was given a dose of milk of magnesia earlier and some liquid antacid, still complaining of some heartburn. Her epigastric pain is improving. OBJECTIVE: VITAL SIGNS: Normal. ABDOMEN: Soft. There is cholecystectomy scars. No mass or rebound. LABORATORY DATA: Shows a normal CBC, liver profile remains normal, lipase has gone from 38,000-6000 overnight which is a significant improvement. Her immunoglobulin IgG, IgA and IgM levels are all normal. IgG subtypes 1 through 4 are pending as well as the RACHEL screen for possible autoimmune pancreatitis. IMPRESSION AND PLAN: The patient has recurrent pancreatitis of unclear etiology. Possibilities include autoimmune pancreatitis or pancreas divisum. Unfortunately, the patient is unwilling to have an MRCP due to claustrophobia. Alternative possibilities may include a dedicated CT scan or an endoscopic ultrasound. Plan on discussing this with Dr. Hodge tomorrow. Neither one of these procedures will be done while she has acute pancreatitis, will need to wait until all the inflammation resolves. In the meantime, we will continue to follow her. I ordered some Protonix orally on a daily basis for her acid reflux symptoms.
[2017-04-26] MEDS: PANTOprazole SOD 40 MG TAB PO SCH (11:23)
--- NOTE | 2017-04-26 13:18 | Family Medicine Progress Note ---
Progress Note Date of Service Apr 26, 2017. Subjective Pt evaluation today including: conversation w/ patient, physical exam, chart review, lab review, review of studies, review of inpatient medication list Pain: 03/28 PO Intake: NPO Voiding: no voiding problems Feeling much improved pain mcnally however "bloated". She has an appetite this morning and would like to trial some clear fluids. Constitutional: No fever ENT: No hearing loss Respiratory: No cough, No sputum, No wheezing, No shortness of breath, No dyspnea on exertion Cardiovascular: No chest pain Abdomen: + pain, + problem reported (as above), No nausea, No vomiting, No diarrhea, No constipation, No GI bleeding Musculoskeletal: No joint pain, No muscle pain Female : No dysuria Neurologic: No weakness, No balance problems Psychiatric: No depression symptoms Heme: No abnormal bleeding/bruising Endo: + fatigue (poor sleep) Skin: No rash Medications Medications Administered Medications (Trade) Dose Ordered Sig/Marquis Route Start Time Stop Time Status Last Admin Dose Admin Hydromorphone HCl (Dilaudid Inj) 1 mg NOW STAT IV 04/25/17 05:31 04/25/17 05:33 DC 04/25/17 05:40 1 MG Ondansetron HCl (Zofran Inj) 4 mg NOW STAT IV 04/25/17 05:31 04/25/17 05:33 DC 04/25/17 05:40 4 MG Sodium Chloride 1,000 ml @ 999 mls/hr Q1H1M STAT IV 04/25/17 05:31 04/25/17 06:31 DC 04/25/17 05:40 999 MLS/HR Hydromorphone HCl (Dilaudid Inj) 0.5 mg Q2H PRN IV 04/25/17 08:15 05/09/17 08:14 04/25/17 19:40 0.5 MG Lactated Ringer's 1,000 ml @ 200 mls/hr Q5H IV 04/25/17 08:15 04/26/17 05:59 DC 04/26/17 04:41 200 MLS/HR Atenolol (Tenormin Tab) 25 mg QAM PO 04/25/17 21:00 05/25/17 20:59 04/26/17 07:41 25 MG Bupropion HCl (Wellbutrin-Xl Tab) 300 mg QAM PO 04/26/17 08:00 05/26/17 08:59 04/26/17 07:41 300 MG Fluoxetine HCl (Prozac Cap) 60 mg DAILY PO 04/26/17 08:00 05/26/17 08:59 04/26/17 07:41 60 MG Simvastatin (Zocor Tab) 20 mg QPM PO 04/25/17 21:00 05/25/17 20:59 04/25/17 21:56 20 MG Hydromorphone HCl (Dilaudid Inj) 2 mg Q4 PRN IV 04/25/17 09:30 05/09/17 09:29 04/25/17 09:46 2 MG Lactated Ringer's 1,000 ml @ 150 mls/hr Q6H40M IV 04/26/17 06:00 05/26/17 05:59 04/26/17 06:00 150 MLS/HR Magnesium Hydroxide (Milk Of Magnesia Susp) 30 ml STK-MED ONCE .ROUTE 04/26/17 09:52 04/26/17 09:53 DC 04/26/17 10:01 30 ML Pantoprazole Sodium (Protonix Tab) 40 mg QAM PO 04/26/17 11:15 05/26/17 11:14 04/26/17 11:23 40 MG Objective Vital Signs Date Time Temp Pulse Resp B/P (MAP) Pulse Ox O2 Delivery O2 Flow Rate FiO2 04/26/17 08:22 36.7 60 18 130/72 (91) 94 Room Air 04/26/17 08:00 Room Air 04/26/17 00:30 Room Air 04/25/17 22:14 36.7 70 20 132/75 (94) 92 Room Air 04/25/17 16:00 92 Room Air 04/25/17 15:50 36.6 65 16 113/67 (82) 92 Room Air Physical Exam General Appearance: no apparent distress Eyes: normal inspection ENT: normal ENT inspection Neck: supple Respiratory/Chest: normal breath sounds, no respiratory distress, no accessory muscle use Cardiovascular: regular rate, rhythm, no murmur Abdomen: normal bowel sounds, soft, + distended (slightly but soft), + tenderness (minimal episgastric tenderness, improved from yesterday) Extremities: normal range of motion, non-tender, normal inspection, no pedal edema, no calf tenderness Neurologic/Psychiatric: alert, normal mood/affect, oriented x 3 Skin: normal color, warm/dry, no rash Lymphatic: no adenopathy Laboratory Results Results Past 24 Hours Test 04/26/17 08:41 Range/Units White Blood Count 8.26 4.8-10.8 K/uL Red Blood Count 4.30 4.2-5.4 M/uL Hemoglobin 13.2 12.0-16.0 g/dL Hematocrit 37.9 37-47 % Mean Corpuscular Volume 88.1 80-100 fL Mean Corpuscular Hemoglobin 30.7 25-34 pg Mean Corpuscular Hemoglobin Concent 34.8 32-36 g/dl RDW Standard Deviation 40.7 36.4-46.3 fL RDW Coefficient of Variation 12.7 11.5-14.5 % Platelet Count 211 130-400 K/uL Mean Platelet Volume 9.0 7.4-10.4 fL Sodium Level 139 136-145 mmol/L Potassium Level 4.1 3.5-5.1 mmol/L Chloride Level 107 98-107 mmol/L Carbon Dioxide Level 27 21-32 mmol/L Anion Gap 5.1 3-11 mmol/L Blood Urea Nitrogen 14 7-18 mg/dl Creatinine 1.05 0.60-1.20 mg/dl Est Creatinine Clear Calc Drug Dose 59.2 ml/min Estimated GFR () 65.9 Estimated GFR (Non- 56.9 BUN/Creatinine Ratio 13.3 10-20 Random Glucose 93 70-99 mg/dl Calcium Level 8.3 8.5-10.1 mg/dl Total Bilirubin 0.8 0.2-1 mg/dl Aspartate Amino Transf (AST/SGOT) 19 15-37 U/L Alanine Aminotransferase (ALT/SGPT) 31 12-78 U/L Alkaline Phosphatase 63 45-117 U/L Total Protein 6.3 6.4-8.2 gm/dl Albumin 3.2 3.4-5.0 gm/dl Globulin 3.1 2.5-4.0 gm/dl Albumin/Globulin Ratio 1.0 0.9-2 Triglycerides Level 200 0-150 mg/dl Lipase 6223 73-393 U/L Assessment and Plan This is a 62 yo f with CKD III, depression that is presenting to us with epigastric pain and findings consistent with pancreatitis, her third pancreatitis admission in 6 years Pancreatitis, improving; unknown etiology - LR @ 100cc/h - Advance diet as tolerated - Consult GI - appreciate recs - Lipase is much improved - Discussed that patient will have follow up imaging most likely in outpatient setting to assess pancreas in a non inflamed state Gerd - addition of pantoprazole by GI - plan for a temporary course HTN - Atenolol 25 mg qam continued - hydralazine 5 mg q6h prn IV for systolic > 180 Depression - continued wellbutrin and prozac CKD III, Angiomyolipoma on right kidney? - 1.05 today - stable tumor on right kidney, <4 mm and possible angiomyolipoma DVT prophylaxis - Heparin bid FULL CODE Dispo: If tolerating regular diet and pain resolved, could anticipate d/c as early as tomorrow Resident Physician Supervision Note: I interviewed and examined the patient. Discussed with Dr. Cleary and agree with findings and plan as documented in the note. Any exceptions or clarifications are listed here: None Patient is improved. Her blood work is improving she clinically also feels better. As per discussions with gastroenterology will advance her diet. She likely will need more workup regarding her recurrent pancreatitis as an outpatient once her pancreatic inflammation resolves as noted previously her suspected angiomyolipoma on her kidney is stable as well as her chronic kidney disease stage III Her vital signs show her temperature to be 37 7 pulse is 70 respiration rate 20 BP 132/75 she is anicteric there is no jaundice her abdomen is normoactive bowel sounds soft Recurrent pancreatitis resolving. Will advance patient's diet continue pain control and assure good plans for follow-up for her recurrent pink otitis with outpatient gastroenterology evaluation Documented By: Dominik Melton Continued [facility] stay due to: inadequate po fluid intake, inadequate oral pain control, multiple IV medications needed Discharge planning: home
[2017-04-26 16:00] VITALS: O2SAT 93
[2017-04-26 16:18] VITALS: BP 131/75; PULSE 71; TEMP 36.8; O2SAT 93
[2017-04-26] MEDS: MAGNESIUM HYDROXIDE SUSP 30 ML UDC PO PRN (18:11)
[2017-04-26] MEDS ORDERED: NURSING DECISION MEDICATION ORDER SCH (19:00)
[2017-04-26] MEDS: SIMVASTATIN 20 MG TAB PO SCH (20:45)
[2017-04-26 21:54] VITALS: BP 150/73; PULSE 73; TEMP 37.1; O2SAT 92
[2017-04-27] MEDS: HEPARIN SOD 5000 UNIT/0.5 ML CARP SQ SCH (03:53)
[2017-04-27] MEDS: LACTATED RINGER'S 1000ML 1,000 ML IV SCH (04:40)
[2017-04-27 07:37] VITALS: BP 144/74; PULSE 67; TEMP 36.5; O2SAT 95
[2017-04-27] MEDS: PANTOprazole SOD 40 MG TAB PO SCH (07:38)
[2017-04-27] MEDS: MAGNESIUM HYDROXIDE SUSP 30 ML UDC PO PRN (07:39)
[2017-04-27] MEDS: FLUOXETINE HCL 20 MG CAP PO SCH (07:39)
[2017-04-27] MEDS: BuPROPion XL 300 MG TABCR PO SCH (07:39)
[2017-04-27] MEDS ORDERED: PRT40 PO (10:17)
--- NOTE | 2017-04-27 10:18 | Discharge Instructions ---
Discharge Instructions Date of Service Apr 27, 2017. Admission Reason for Admission: Pancreatitis Discharge Discharge Diagnosis / Problem: Pancreatitis Discharge Goals Goal(s): Decrease discomfort, Diagnostic testing Activity Recommendations Activity Limitations: resume your previous activity . Instructions / Follow-Up Instructions / Follow-Up You were admitted to the hospital with pancreatitis. In hospital, imaging didn' t show any new abnormalities or findings of concern, and labs showed subsequent improvement in your lipase levels. You have been tolerating diet without issue. Because this is your third episode of pancreatitis with previous removal of gallbladder, an autoimmune panel was ordered by the school age program teacher. These results are still pending at time of discharge. At time of discharge, please continue a low fat diet. You may continue the pantoprazole (Protonix) for acid reflux symptoms. A follow up appointment with GI will be scheduled in 1-2 weeks. Please call back if you have been advised of an appointment date/time in 2 days. You may continue all other medications as before. Please let us know if you have any questions. Thank you for allowing us to participate in your care. Current Hospital Diet Patient's current hospital diet: Low Fat Diet Discharge Diet Recommended Diet: Low Fat Diet Pending Studies Studies pending at discharge: yes List of pending studies: Autoimmune panel Laboratory Results Lipid Panel Test 04/26/17 08:41 Range/Units Triglycerides Level 200 H 0-150 mg/dl Medical Emergencies . Who to Call and When: Medical Emergencies: If at any time you feel your situation is an emergency, please call 911 immediately. . Non-Emergent Contact Non-Emergency issues call your: Primary Care Provider, Surgery Manager . . "Provider Documentation" section prepared by Talia Feliciano. . Resident Tracking Resident Involvement: Resident Care Provided Care Provided: Adult Hospital Medicine
[2017-04-27 13:45] VITALS: BP 144/74; PULSE 67; TEMP 36.5; O2SAT 95
--- NOTE | 2017-04-27 13:50 | Discharge Summary ---
Discharge Summary Date of Service Apr 27, 2017. Discharge Summary Admission Date: Apr 25, 2017 at 08:00 Discharge Date: Apr 27, 2017 Discharge Disposition: Home Principal Diagnosis: Pancreatitis Immunizations: Have You Had Influenza Vaccine: Unknown History of Tetanus Vaccine?: Unknown History of Pneumococcal: Unknown History of Hepatitis B Vaccine: Unknown Consultations: gastroenterology Medication Reconciliation New Medications: Pantoprazole (Pantoprazole Sodium) 40 Mg Tab 40 MG PO QAM, #30 TAB 1 Refill Continued Medications: Atenolol (Tenormin) 25 Mg Tab 25 MG PO QAM, TAB Bupropion (Wellbutrin-Xl) 300 Mg Tabcr 300 MG PO QAM Ergocalciferol (Vitamin D 16979 Unit) 50,000 Unit Cap 96942 UNIT PO MONTHLY Fish Oil ([place]-3) 1 Ea Cap 1000 MG PO QAM, CAP Fluoxetine (Prozac) 40 Mg Cap 40 MG PO DAILY, CAP Fluoxetine Hcl (Prozac) 20 Mg Cap 20 MG PO QAM TO TAKE W/ 40MG TABLET TO HAVE FULL DOSE OF 60MG Multivitamin (Multivitamin) Tab 1 TAB PO QAM, TAB Simvastatin (Zocor) 20 Mg Tab 20 MG PO QPM, TAB Discharge Exam Patient feeling well this morning, denies acute overnight events. She has advanced her diet and tolerated it well without experiencing, nausea/vomiting, abdominal pain, bloating. She otherwise denies fevers/chills, headaches, CP, palpitations, dyspnea, abdominal pain, lower extremity swelling, rashes or issues with urination or voiding. She is keen for discharge and states understanding of further management plans. ROS is unremarkable except as noted above. Physical Exam: General Appearance: WD/WN, no apparent distress Eyes: normal inspection, sclerae normal ENT: hearing grossly normal, pharynx normal Neck: supple Respiratory/Chest: lungs clear, normal breath sounds, no respiratory distress, no accessory muscle use Cardiovascular: regular rate, rhythm, normal peripheral pulses, + systolic murmur Abdomen / GI: normal bowel sounds, non tender, soft, no organomegaly Extremities: no calf tenderness, no pedal edema Neurologic/Psychiatric: alert, normal mood/affect, oriented x 3 Skin: normal color, warm/dry, no rash Hospital Course This is a 62 yo F with CKD III, depression that is presenting to us with epigastric pain and findings consistent with pancreatitis, her third pancreatitis admission in 6 years Pancreatitis; unknown etiology CT abdo/pelv: Findings compatible with acute uncomplicated pancreatitis. No peripancreatic fluid collections or evidence of pancreatic necrosis. Mild wall thickening of the fluid-filled duodenum is likely reactive. No bowel obstruction. Prior cholecystectomy. GI consulted, - Initially placed on bowel rest with IVF, but subsequently diet advanced as tolerated - Lipase trended: 42034 --> 6223 --> 2904 - Given unknown etiology of recurrent pancreatitis, autoimmune panel ordered. Results pending on discharge. - On discharge, patient advised for low fat diet, and follow up with GI in 1-2 weeks - Patient understands that follow up imaging might be warranted in outpatient setting to assess pancreas in a non-inflamed state GERD Symptoms flared in conjunction with pancreatitis symptoms. 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 - Mildly elevated creatinine on admission, but subsequently normalized - Stable tumor on right kidney, <4 mm and possible angiomyolipoma DVT prophylaxis - Received Heparin SC BID while in hospital FULL CODE Total Time Spent: Greater than 30 minutes This includes examination of the patient, discharge planning, medication reconciliation, and communication with other providers. Discharge Instructions Please refer to the electronic Patient Visit Report (Discharge Instructions) for additional information. Additional Copies To Sanchez Cross M.D. Resident Tracking Resident Involvement: Resident Care Provided Care Provided: Adult Hospital Medicine Reviewed: Pt Seen/Exam by Me History tolerated meal well no abdominal pain Constitutional: denies: fever Respiratory: negative: short of breath Cardiovascular: denies chest pain General Appearance: no apparent distress Respiratory: lungs clear, no respiratory distress Cardiovascular: regular rate, rhythm Gastrointestinal: soft Neurologic/Psychiatric: alert, oriented x 3 Skin Characteristics: warm/dry Assessment/Plan Resident Physician Supervision Note: I independently interviewed and examined the patient and verified the forrester history and physical, reviewed labs and image studies, discussed the case with the resident Dr. Feliciano and agree with the findings and care plan. Time spent in discharge 35 min
[2017-04-28 16:33] LABS: ANA SCREEN TC 249X NEGATIVE (NEGATIVE)
== END 2017-04-27 14:01 | disposition home or self-care (01) | DRG 440 ==
LOC: C.EDB 05:18 → C.MS4W 08:00 → ENRESERV 08:12
PROVIDERS: ADMIT Internal Medicine; ATTEND Family Medicine
DX: K85.80 Other acute pancreatitis without necrosis or infection (principal); K21.9 Gastro-esophageal reflux disease without esophagitis; I12.9 Hypertensive chronic kidney disease with stage 1 through stage 4 chronic kidney disease, or unspecified chronic kidney disease; N18.3 Chronic kidney disease, stage 3 (moderate); D17.71 Benign lipomatous neoplasm of kidney; F32.9 Major depressive disorder, single episode, unspecified; E78.5 Hyperlipidemia, unspecified; F40.240 Claustrophobia; Z90.49 Acquired absence of other specified parts of digestive tract; Z87.891 Personal history of nicotine dependence; Z79.899 Other long term (current) drug therapy; Z88.2 Allergy status to sulfonamides

== ENCOUNTER → 2017-06-05 | Outpatient (CLI) | payer OTHER ==
[~2017-06-05] MED LIST changes: -FLNIN NAE; +FLUO40CA8 PO; -HYDR25SU20 PR; -PANT40TA PO; -POLY335019 PO; -PRMVC TOP; +PRT40 PO
== END | disposition home or self-care (01) ==
LOC: C.LABSPEC 11:09
PROVIDERS: ATTEND Obstetrics & Gynecology
DX: R39.9 Unspecified symptoms and signs involving the genitourinary system (principal)

== ENCOUNTER → 2017-06-05 | Outpatient (CLI) | payer OTHER | END | disposition home or self-care (01) | LOC: C.PAPS 11:50 | PROVIDERS: ATTEND Obstetrics & Gynecology | DX: Z12.4 Encounter for screening for malignant neoplasm of cervix (principal) ==